=== PATIENT | female | born 1960 | race Caucasian/White ===

== ENCOUNTER 2018-09-06 12:03 | Emergency (ER) | payer OTHER ==
[2018-09-06 12:13] VITALS: BP 161/95; PULSE 85; TEMP 97.6; BMI 26.3
--- NOTE | 2018-09-06 13:06 | PDOC ---
History of Present Illness - General Chief Complaint: Toothache Stated Complaint: NECK PAIN Time Seen by Provider: 09/06/18 12:52 - History of Present Illness Initial Comments: 09/06/18 13:04 58-year-old female with a past medical history significant for dyslipidemia depression and hepatitis C presents for evaluation of right-sided jaw and neck pain 3 days without systemic symptoms. Past History - Past Medical History Allergies/Adverse Reactions: Allergies Allergy/AdvReac Type Severity Reaction Status Date / Time No Known Allergies Allergy Verified 09/06/18 12:13 Home Medications: Ambulatory Orders NK [No Known Home Medication] 09/06/18 COPD: No CHF: No DVT: No Dementia: No GI Disorders: Yes (Hep C) Hypercholesterolemia: Yes Psychiatric Problems: Yes (depression, anxiety) Other medical history: Arthritis - Suicide/Smoking/Psychosocial Hx Smoking History: Current every day smoker Have you smoked in the past 12 months: Yes Number of Cigarettes Smoked Daily: 10 Information on smoking cessation initiated: Yes Hx Alcohol Use: No Drug/Substance Use Hx: No Review of Systems - Review of Systems HEENTM: Yes: See HPI *Physical Exam - Vital Signs Last Vital Signs Temp Pulse Resp BP Pulse Ox 97.6 F 85 20 161/95 96 09/06/18 12:11 09/06/18 12:11 09/06/18 12:11 09/06/18 12:11 09/06/18 12:11 - Physical Exam Comments: 09/06/18 13:04 HEAD: NC/AT EYES: Conjuntiva clear Ears: Canals and TM's normal, bilateral TMJ crepitation no tenderness NOSE: No d/c THROAT: Moist mucous membrances, oral pharanx clear, uvula midline NECK: Supple without adenopathy, no tenderness. CARDIAC: S1 S2 LUNGS: CTA Full and Equal breath sounds ABDOMEN: Soft NT ND MS: Full ROM in all joints without edema NEUROLOGIC: No gross sensory or motor deficits, NVID SKIN: Normal color and temperature no lesions or rashes Moderate Sedation - Procedure Monitoring Vital Signs: Procedure Monitoring Vital Signs Temperature 97.6 F 09/06/18 12:11 Pulse Rate 85 09/06/18 12:11 Respiratory Rate 20 09/06/18 12:11 Blood Pressure 161/95 09/06/18 12:11 O2 Sat by Pulse Oximetry (%) 96 09/06/18 12:11 Medical Decision Making - Medical Decision Making 09/06/18 13:04 Patient describes radiating pain from the TMJ to the angle of the mandible at times into her neck. 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 *DC/Admit/Observation/Transfer Diagnosis at time of Disposition: TMJ arthritis - Discharge Dispostion Disposition: HOME Condition at time of disposition: Stable Decision to Admit order: No - Referrals Referrals: Narciso Freeman MD [Primary Care Provider] - Jose Angel Olmos MD [Staff Physician] - - Patient Instructions Printed Discharge Instructions: Temporomandibular Disorder, DI for Temporomandibular Disorder Additional Instructions: Continue with Tylenol and Motrin as directed. Return to the emergency room for worsening symptoms. Follow-up with ear nose and throat doctor in 1-2 days for further evaluation and treatment options. - Post Discharge Activity
== END 2018-09-06 13:26 | disposition home or self-care (01) ==
LOC: JERFT 12:03
DX: M26.69 Other specified disorders of temporomandibular joint (principal)
CPT/HCPCS: 99281-25